=== PATIENT | female | born 1945 | race Caucasian/White ===

== ENCOUNTER 2018-07-30 14:14 | Outpatient (CLI) | payer MEDICARE, BC, SELFPAY ==
[2018-07-30 14:49] LABS: Abs Immature Grans 0.01 k/cumm (0.0-0.09); Absolute Basophil Count 0.02 k/cumm (0.0-0.2); Absolute Eosinophil Count 0.06 k/cumm (0.0-0.7); Absolute Lymphocyte Count 1.55 k/cumm (1.2-3.4); Absolute Monocyte Count 0.98 k/cumm (0.11-0.7); Absolute Neutrophil Count 7.67 k/cumm (1.2-6.7); Basophils % 0.2; Eosinophils % 0.6; HCT 40.7 % (36.0-46.0); Immature Grans % 0.1; Lymphocytes % 15.1; Mean Corp. HGB Concentration 34.4 g/dL (32.0-36.0); Mean Corpuscular Hemoglobin 30.7 pg (27.0-33.0); Mean Corpuscular Volume 89.3 fL (80-95); Mean Platelet Volume 9.5 fL (8.0-11.0); Monocytes % 9.5; Neutrophils % 74.5; Platelet Count 170 x1000/uL (130-400); RBC 4.56 m/cumm (4.00-5.20); White Blood Cell Count 10.29 k/cumm (4.4-10.8)
[2018-07-30 15:30] LABS: C-Reactive Protein 1.98 mg/dL (0.0-0.3); Lipase 165 U/L (73-393)
[2018-07-30 15:35] LABS: ALT 19 U/L (12-78); AST 18 U/L (15-37); Albumin 3.5 g/dL (3.4-5.0); Alkaline Phosphatase 126 U/L (46-116); Anion Gap 9.6 mmol/L (3-11); BUN 24 mg/dL (7-18); Bilirubin, Total 0.7 mg/dL (0.2-1.0); CO2 29.4 mmol/L (21.0-32.0); CREATININE 0.69 mg/dL (0.55-1.02); Calcium 9.2 mg/dL (8.5-10.1); Chloride 97 mmol/L (98-107); Glucose 103 mg/dL (70-100); Potassium 3.6 mmol/L (3.5-5.1); Sodium 136 mmol/L (136-145); Total Protein 6.9 g/dL (6.4-8.2)
== END 2018-07-30 14:34 ==
PROVIDERS: PCP Internal Medicine; Visit Provider Family Medicine
DX: R11.2 Nausea with vomiting, unspecified (principal)
CPT/HCPCS: 36415; 80053; 83690; 85025; 86140

== ENCOUNTER 2018-08-03 00:48 | Outpatient (CLI) | payer MEDICARE, BC, SELFPAY ==
--- NOTE | 2018-08-03 08:13 | DI.US_ITS ---
SYMPTOM/DIAGNOSIS: RUQ TENDERNESS, NAUSEA, VOMITING, R11.2 ABDOMINAL ULTRASOUND: 08/03 The hepatic parenchyma is unremarkable except for an incidental approximately 11 mm in diameter simple cyst of the right hepatic lobe. No hepatomegaly. There are multiple gallstones without evidence of gallbladder wall thickening or pericholecystic fluid collection. The common hepatic duct shows maximal diameter 2-3 mm. The pancreas appears intact as visualized Right kidney contains 12 mm simple cyst in the mid-pole region. The kidneys are otherwise unremarkable in appearance with no evidence of hydronephrosis or nephrolithiasis. Abdominal aorta shows marked wall calcifications. Proximal abdominal aorta is ectatic at about 30 mm greatest diameter.. No infrarenal abdominal aortic aneurysm seen. 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 Note is made of cholelithiasis.
== END 2018-08-03 01:08 ==
PROVIDERS: PCP Internal Medicine; Visit Provider Family Medicine
DX: R10.811 Right upper quadrant abdominal tenderness (principal); R11.2 Nausea with vomiting, unspecified; I70.0 Atherosclerosis of aorta; K80.20 Calculus of gallbladder without cholecystitis without obstruction
CPT/HCPCS: 76700

== ENCOUNTER 2018-12-04 12:10 | Emergency (ER) | payer MEDICARE, BC, SELFPAY ==
[2018-12-04 12:42] VITALS: BP 153/86; PULSE 105; RESP 20; TEMP 36.8; O2SAT 98
--- NOTE | 2018-12-04 12:53 | DI.CT_ITS ---
SYMPTOMS/DIAGNOSIS: FALL, LOSS OF CONSCIOUSNESS CRANIAL CT: Noncontrast cranial CT was performed. There is moderate generalized cerebral atrophy. There is an apparent old left lacunar infarct measuring about 15 x 9 mm in diameter. There is no evidence of acute intracranial hemorrhage, mass effect or midline shift. The paranasal sinuses are well aerated as are the mastoid air cells. The orbital and temporal bone structures appear intact. CONCLUSION: No evidence of acute intracranial process.
[2018-12-04] MEDS: Normal Saline 1,000 ML 1000 ML IV (12:57)
--- NOTE | 2018-12-04 12:58 | DI.CT_ITS ---
SYMPTOMS/DIAGNOSIS: ABDOMINAL PAIN, NAUSEA, VOMITING CHEST, ABDOMEN AND PELVIS CT: CT examination of the chest, abdomen and pelvis was performed with a bolus infusion of 100 cc's of Omnipaque 350. The lungs are predominantly clear but there is an irregular somewhat nodular appearing focus of increased radiodensity with suggestion of spiculation in the right upper lobe suspicious for carcinoma. No previous chest CT available for comparison. This measures roughly 5 x 14 mm in diameter. 7 mm well circumscribed nodule is also seen more medially in the right upper lobe. No additional focal lung lesions seen. There are areas of apparent honeycombing in the right lung base and diffuse emphysematous changes are present. No focal abnormality of the tracheobronchial tree seen. No gross mediastinal or hilar adenopathy. No pleural effusion seen. The liver and spleen are unremarkable in appearance. Note is made of cholelithiasis. No biliary dilatation seen. Incidental right hepatic lobe cyst noted. There is a small lower pole right renal cyst. Otherwise the kidneys and adrenals are unremarkable in appearance. The aorta is very heavily calcified and there is marked luminal diameter narrowing of the abdominal aorta and also of the left common iliac artery. Probable bypass graft noted in the right iliac region. No gross abdominal or pelvic adenopathy seen. No free fluid or free air. No evidence of bowel obstruction. The appendix not specifically visualized but there is no evidence of appendicitis or diverticulitis. CONCLUSION: Findings raising the possibility of right upper lobe lung carcinoma. No acute chest or abdomen process. Very heavy vascular calcification seen particularly involving abdominal aorta with marked luminal diameter narrowing. Major arterial branches of the aorta appear patent. No is also made of cholelithiasis.
[2018-12-04 13:05] LABS: Abs Immature Grans 0.04 k/cumm (0.0-0.09); Absolute Basophil Count 0.02 k/cumm (0.0-0.2); Absolute Eosinophil Count 0.02 k/cumm (0.0-0.7); Absolute Monocyte Count 1.04 k/cumm (0.11-0.7); Absolute Neutrophil Count 14.73 k/cumm (1.2-6.7); Basophils % 0.1; Eosinophils % 0.1; HCT 38.5 % (36.0-46.0); HGB 13.2 g/dL (12.0-15.5); Immature Grans % 0.2; Lymphocytes % 5.4; Mean Corp. HGB Concentration 34.3 g/dL (32.0-36.0); Mean Corpuscular Hemoglobin 30.2 pg (27.0-33.0); Mean Corpuscular Volume 88.1 fL (80-95); Mean Platelet Volume 10.3 fL (8.0-11.0); Monocytes % 6.2; Platelet Count 170 x1000/uL (130-400); RBC 4.37 m/cumm (4.00-5.20); RBC Distribution Width 13.2 % (11.7-14.6); White Blood Cell Count 16.74 k/cumm (4.4-10.8)
[2018-12-04 13:17] LABS: ALT 16 U/L (12-78); AST 22 U/L (15-37); Albumin 3.4 g/dL (3.4-5.0); Alkaline Phosphatase 130 U/L (46-116); BUN 39 mg/dL (7-18); Bilirubin, Total 0.6 mg/dL (0.2-1.0); CREATININE 1.01 mg/dL (0.55-1.02); Chloride 94 mmol/L (98-107); Estimated GFR 53.88 (mL/min/1.73m2); Glucose 111 mg/dL (70-100); Lipase 108 U/L (73-393); Potassium 3.2 mmol/L (3.5-5.1); Sodium 133 mmol/L (136-145); Total Protein 7.4 g/dL (6.4-8.2)
--- NOTE | 2018-12-04 14:21 | W.ED.GENAD ---
Discharge Plan Disposition Patient Disposition: HOME Condition: Stable Discharge Details Chief Complaint: Nausea/Vomit/Diar Clinical Impression: UTI (urinary tract infection), Mass of right lung, Calcification of aorta Primary Care Provider: Ivanna Rivas ED Provider: Chilango Garibay Home Meds and New Rx's Prescriptions: New cephalexin 500 mg tablet 500 mg PO BID 7 Days Qty: 14 RF: 0 Continued ranitidine HCl 300 mg tablet 300 mg PO BID Qty: 30 RF: 0 sertraline 100 mg tablet 100 mg PO DAILY Qty: 90 RF: 2 atorvastatin 20 mg tablet 20 mg PO DAILY Qty: 90 RF: 3 amlodipine 5 mg tablet 5 mg PO DAILY Qty: 90 RF: 3 irbesartan 300 mg tablet 300 mg PO DAILY Qty: 90 RF: 3 Discharge Instructions Instructions: Urinary Tract Infection in Women (ED) Additional Instructions: Please take your antibiotics as prescribed and follow-up with your primary care provider as previously arranged. Please mention to your primary care provider about the noted right lung mass, aortic calcifications. These may be chronic in nature but do need close monitoring. Return immediately for any further concerns that you may have and stay well-hydrated during illness. You may slowly advance your diet as tolerated Referrals: Ivanna Rivas MD [Primary Care Provider] - (Keep your appointment as scheduled for next Friday) Discharge Data Discharge Date/Time-TO BE ENTERED AT DEPARTURE: 12/04/18 17:24 Medical Decision Making Patient presenting the emergency department for chief complaint of nausea vomiting diarrhea and chills. She states this is been going on for approximately 2 weeks but has had significant weight loss over the last year. Patient is very thin and ill in appearance, nontoxic, slight tachycardia otherwise afebrile not hypotensive. Patient has diffuse abdominal tenderness with no focal findings. Given patient is very thin and frail in appearance there is significant concern for cancer given that she is a daily smoker. Patient is agreeable to labs and CT imaging of head, chest abdomen pelvis. Patient also does report multiple falls over the last couple weeks but denies any persistent neurological symptoms. She does say with falls there was some loss of consciousness. Review of labs shows a significant leukocytosis otherwise are nondiagnostic, CT of the head shows no acute findings. CT of the chest and pelvis shows a mass in the right upper lobe of the lung, significant calcifications of the aorta with previous stenting noted on the distal iliac, otherwise no other acute abdominal findings found. Review of urinalysis shows significant findings concerning for UTI. Patient given Rocephin in the emergency department for urinary tract infection along with 1 L normal saline. She already has Zofran prescribed to her. Patient was offered admission due to not tolerating much p.o. intake but she refused admission at this time. Patient is competent to refuse admission at this time and his spouse was present during our conversation. Patient placed up on Keflex twice daily times 7 days. Patient encouraged to return for any further needs otherwise follow-up with primary care as already scheduled for next Friday. After discussion of diagnosis and plan of care patient and significant other have no further needs, questions, or concerns and states clear understanding to return to the emergency department for any worsening symptoms. HPI General Mode of arrival: wheelchair. Date/Time Provider Initiated Documentation: 12/04/18 12:47. Limitations to Documentation: no limitations. Information obtained by: patient and RN notes reviewed. History of Present Illness 73 year old F presents to the emergency department with the chief complaint of weakness abd pain n/v/d, described as mild, with intensity rated at 1. Quality is described as aching, and is localized to the abdomen. Patient started experiencing this week(s) (1) and it has been constant. No relieving factors improve symptom(s), No exacerbating factors reported . Patient did receive the following treatments prior to arrival, none Related Data Home Medications Medication Instructions Recorded Confirmed amlodipine 5 mg tablet 5 mg PO DAILY #90 tab-cap 08/05/18 12/04/18 atorvastatin 20 mg tablet 20 mg PO DAILY #90 tab 08/05/18 12/04/18 irbesartan 300 mg tablet 300 mg PO DAILY #90 tab-cap 08/05/18 12/04/18 sertraline 100 mg tablet 100 mg PO DAILY #90 tab 08/05/18 12/04/18 ranitidine 300 mg tablet 300 mg PO BID #30 tab 12/02/18 12/04/18 cephalexin 500 mg PO BID 7 Days #14 tab 12/04/18 Previous Rx's Medication Instructions Recorded amlodipine 5 mg tablet 5 mg PO DAILY #90 tab-cap 08/05/18 atorvastatin 20 mg tablet 20 mg PO DAILY #90 tab 08/05/18 irbesartan 300 mg tablet 300 mg PO DAILY #90 tab-cap 08/05/18 sertraline 100 mg tablet 100 mg PO DAILY #90 tab 08/05/18 ranitidine 300 mg tablet 300 mg PO BID #30 tab 12/02/18 cephalexin 500 mg PO BID 7 Days #14 tab 12/04/18 Allergies Allergy/AdvReac Type Severity Reaction Status Date / Time erythromycin base AdvReac Severe violently Verified 12/04/18 12:50 ill with vomiting egg AdvReac Unknown unknown Verified 12/04/18 12:50 flu vaccine Allergy Intermediate localized Uncoded 12/04/18 12:50 reaction with arm swelling General Stated Complaint: Nausea/Vomit/Diar DIANE: 2 Review of Systems Constitutional Reports chills, Denies fever(s), Reports frequent falls, Reports poor appetite, Reports weakness and Reports weight loss Cardiovascular Denies chest pain, Reports syncope and Denies dyspnea Respiratory Denies cough and Denies dyspnea Gastrointestinal Reports as per HPI, Reports abdominal pain, Denies melena, Denies change in bowel habits, Denies constipation, Reports diarrhea, Reports nausea and Reports vomiting Genitourinary Denies hematuria, Denies urinary incontinence, Denies urinary hesitancy and Denies urinary urgency Integumentary/Breasts Denies rash Neurologic Reports syncope, Reports frequent falls and Reports weakness [facility] Social History housing: house lives independently: Yes current occupational status: retired current occupation: teacher Smoking/Tobacco Use Status: Current every day alcohol intake: never substance use type: does not use seatbelt use: always water heater temp set < 120 deg: Yes working smoke detector in home: Yes fire extinguisher in home: Yes carbon monox detector in home: Yes Exam Const General: cooperative Orientation: alert, awake and oriented x3 HENMT Head: no Au's sign, contusion right frontal, no palpable skull fracture and no raccoon eyes Ears: hearing grossly normal bilaterally and TM's normal bilaterally Resp Effort & Inspection: normal respiratory effort and able to speak in complete sentences Auscultation: clear to auscultation bilaterally and diminished lung sounds bilaterally in the lower lung rossi Cardio Rate: regular rate Rhythm: regular rhythm Heart Sounds: S1 normal and S2 normal GI Palpation: soft, no hepatosplenomegaly, not firm, no guarding, no masses, no pulsatile masses, not rigid, no splenomegaly and tender (Diffuse nonfocal) Auscultation: hypoactive bowel sounds Back/Spine/Pelvis Back: no CVA tenderness Neuro General: alert, awake, oriented x3, gait normal and moves all extremities Course Vital Signs Temperature 36.8 C 12/04/18 12:42 Pulse 105 H 12/04/18 12:42 Respiratory Rate 20 12/04/18 12:42 Blood Pressure 153/86 H 12/04/18 12:42 Pulse Oximetry 98 12/04/18 12:42 Temperature 36.8 C 12/04/18 12:42 Temperature Source Temporal Artery Scan 12/04/18 12:42 Pulse 105 H 12/04/18 12:42 Respiratory Rate 20 12/04/18 12:42 Respiratory Effort Non-Labored 12/04/18 12:45 Blood Pressure 153/86 H 12/04/18 12:42 Blood Pressure Position Supine 12/04/18 12:42 Pulse Oximetry 98 12/04/18 12:42 Oxygen Delivery Method Room Air 12/04/18 12:42 Oxygen Flow Rate 0 12/04/18 12:42 Lab/Test Results Lab/Test Results: Laboratory Tests Range/Units 12/04/18 12/04/18 12:45 12:45 WBC (4.4-10.8) k/cumm 16.74 H RBC (4.00-5.20) m/cumm 4.37 Hgb (12.0-15.5) g/dL 13.2 Hct (36.0-46.0) % 38.5 MCV (80-95) fL 88.1 MCH (27.0-33.0) pg 30.2 MCHC (32.0-36.0) g/dL 34.3 RDW (11.7-14.6) % 13.2 Plt Count (130-400) x1000/uL 170 MPV (8.0-11.0) fL 10.3 Immature Gran % 0.2 Neutrophils % 88.0 Lymphocytes % 5.4 Monocytes % 6.2 Eosinophils % 0.1 Basophils % 0.1 Absolute Neutrophils (1.2-6.7) k/cumm 14.73 H Absolute Lymphocytes (1.2-3.4) k/cumm 0.90 L Absolute Monocytes (0.11-0.7) k/cumm 1.04 H Absolute Eosinophils (0.0-0.7) k/cumm 0.02 Absolute Basophils (0.0-0.2) k/cumm 0.02 Sodium (136-145) mmol/L 133 L Potassium (3.5-5.1) mmol/L 3.2 L Chloride (98-107) mmol/L 94 L Carbon Dioxide (21.0-32.0) mmol/L 28.0 Anion Gap (3-11) mmol/L 11.0 BUN (7-18) mg/dL 39 H Creatinine (0.55-1.02) mg/dL 1.01 Estimated GFR/1.73 m2 (mL/min/1.73m2) 53.88 Glucose (70-100) mg/dL 111 H Calcium (8.5-10.1) mg/dL 9.0 Total Bilirubin (0.2-1.0) mg/dL 0.6 AST (15-37) U/L 22 ALT (12-78) U/L 16 Alkaline Phosphatase (46-116) U/L 130 H Total Protein (6.4-8.2) g/dL 7.4 Albumin (3.4-5.0) g/dL 3.4 Lipase (73-393) U/L 108
[2018-12-04 15:25] LABS: Lactate-non-spesis 0.8 mmol/l (0.6-1.4)
--- NOTE | 2018-12-04 15:28 | NUR.NOTE ---
patient ambulated weakly with 2 assist to restroom, patient drinking po fluids Nursing Note:
[2018-12-04 15:33] LABS: Bilirubin Negative (Negative); Blood Trace-intact (Negative); Clarity Sl Cloudy; Glucose Negative (Negative); Ketones 15 mg/dL (Negative); Leukocyte Esterase Small (Negative); Nitrite Positive (Negative); Urobilinogen 0.2 EU/dL (Up TO 0.2); pH 5.5 (5-8)
[2018-12-04 15:34] VITALS: BP 137/85; PULSE 71; RESP 16; O2SAT 97
[2018-12-04 15:55] LABS: Bacteria Moderate HPF (Negative); Crystals Negative HPF (Negative); Epithelial Cells Few HPF (Negative); RBC 0-2 (0-2); WBC 20-50 HPF (0-5)
[2018-12-04 15:56] LABS: C & S Indicated? Yes; Casts 0-2 Coarse Granular LPF (Negative); Mucus Trace (Negative)
[2018-12-04 16:48] VITALS: BP 157/84; PULSE 84; RESP 16; TEMP 37.1; O2SAT 95
--- NOTE | 2018-12-04 16:49 | NUR.NOTE ---
patient drinking water denies pain will contionue tommomitor Nursing Note:
--- NOTE | 2018-12-04 17:07 | NUR.NOTE ---
patient to be discharged Nursing Note:
== END 2018-12-04 17:24 | disposition home or self-care (01) ==
PROVIDERS: Emergency Provider Nurse Practitioner Family; PCP Internal Medicine
DX: N39.0 Urinary tract infection, site not specified (principal); R91.8 Other nonspecific abnormal finding of lung field; I70.0 Atherosclerosis of aorta
CPT/HCPCS: 74177; 80053; 83690; 87077; 96361; 96365; 99284; 70450; 71260; 81003; 81015; 83605; 85025; 87086; 87186; J0696

== ENCOUNTER 2018-12-15 12:28 | Outpatient (REF) | payer MEDICARE, BC, SELFPAY ==
[2018-12-17 04:58] LABS: Vitamin D 25 Total 18.2 ng/ml (30-100)
== END 2018-12-15 12:48 ==
LOC: LBN 12:28
PROVIDERS: PCP Internal Medicine; Visit Provider Internal Medicine
DX: M81.0 Age-related osteoporosis without current pathological fracture (principal)
CPT/HCPCS: 82306

== ENCOUNTER 2018-12-24 09:00 | Outpatient (RCR) | payer MEDICARE, BC, SELFPAY ==
[2018-12-24] MEDS: Lactated Ringers 1,000 ML 333.333 ML IV (10:15)
[2018-12-24 11:02] LABS: CREATININE 0.57 mg/dL (0.55-1.02)
[2018-12-24] MEDS: Normal Saline Flush 10 ML SYR IVP (11:12)
== END 2018-12-31 23:59 | disposition home or self-care (01) ==
LOC: INF 09:00
PROVIDERS: PCP Internal Medicine; Visit Provider Internal Medicine
DX: K55.1 Chronic vascular disorders of intestine (principal); E86.0 Dehydration
CPT/HCPCS: 36415; 96360; 96361; 74174; 82565; J3490

== ENCOUNTER 2018-12-24 14:10 | Outpatient (CLI) | payer MEDICARE, BC, SELFPAY ==
[2018-12-24] MEDS: Omnipaque 350 MG/ML 100 ML BTL IJ (14:08)
--- NOTE | 2018-12-24 14:08 | DI.CT_ITS ---
SYMPTOM/DIAGNOSIS: ABNL WT LOSS, EPIGASTRIC PAIN, ? MESENTERIC ISCHEMIA, R63.4, I71.4 CTA ABDOMEN AND PELVIS: CT angiography was performed with multi slice acquisition and multi planar and 3D reconstruction. CT angiography of the abdomen and pelvis was performed with a bolus infusion of 100 cc's of Omnipaque 350. There is severe calcific atheromatous disease of the aorta and major vessels of the abdomen. 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 The left internal and external arteries reconstitute via collaterals. The celiac trunk appears occluded but reconstitutes via collaterals. The SMA is occluded but reconstitutes via collaterals. The MOISÉS is occluded but branch vessels appear to reconstitute via collaterals. Right renal artery is mildly narrowed at its origin. 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 Note is again made of grossly unremarkable appearance of liver, spleen and pancreas as noted on examination of 12/04/18. There is no hydronephrosis and the renal cortex enhances fairly homogeneously and symmetrically bilaterally. Adrenals grossly unremarkable. No gross abdominal adenopathy or bowel obstruction. CONCLUSION: Severe atheromatous disease. Please see above discussion for findings of major arterial branches of the abdominal aorta which is occluded at the L 3 level.
[2018-12-24] MEDS: Normal Saline Flush 10 ML SYR IVP (14:09)
== END 2018-12-24 14:30 ==
PROVIDERS: PCP Internal Medicine; Visit Provider Student in an Organized Health Care Education/Training Program
DX: I70.0 Atherosclerosis of aorta (principal); R10.13 Epigastric pain; R63.4 Abnormal weight loss
CPT/HCPCS: 74174; J3490

== ENCOUNTER 2019-01-15 20:18 | Outpatient (REF) | payer MEDICARE, BC, SELFPAY ==
[2019-01-15 21:14] LABS: Abs Immature Grans 0.01 k/cumm (0.0-0.09); Absolute Basophil Count 0.02 k/cumm (0.0-0.2); Absolute Eosinophil Count 0.03 k/cumm (0.0-0.7); Absolute Lymphocyte Count 1.62 k/cumm (1.2-3.4); Absolute Monocyte Count 0.86 k/cumm (0.11-0.7); Absolute Neutrophil Count 5.94 k/cumm (1.2-6.7); Basophils % 0.2; Eosinophils % 0.4; HCT 33.8 % (36.0-46.0); HGB 11.4 g/dL (12.0-15.5); Immature Grans % 0.1; Lymphocytes % 19.1; Mean Corp. HGB Concentration 33.7 g/dL (32.0-36.0); Mean Corpuscular Hemoglobin 29.5 pg (27.0-33.0); Mean Corpuscular Volume 87.3 fL (80-95); Mean Platelet Volume 10.6 fL (8.0-11.0); Monocytes % 10.1; Neutrophils % 70.1; Platelet Count 202 x1000/uL (130-400); RBC 3.87 m/cumm (4.00-5.20); RBC Distribution Width 13.9 % (11.7-14.6); White Blood Cell Count 8.48 k/cumm (4.4-10.8)
[2019-01-15 21:41] LABS: ALT 16 U/L (12-78); AST 17 U/L (15-37); Albumin 3.1 g/dL (3.4-5.0); Alkaline Phosphatase 119 U/L (46-116); Anion Gap 7.1 mmol/L (3-11); BUN 40 mg/dL (7-18); Bilirubin, Total 0.5 mg/dL (0.2-1.0); CO2 25.9 mmol/L (21.0-32.0); CREATININE 0.57 mg/dL (0.55-1.02); Calcium 8.7 mg/dL (8.5-10.1); Chloride 101 mmol/L (98-107); Glucose 99 mg/dL (70-100); Magnesium 2.1 mg/dL (1.8-2.4); Potassium 4.8 mmol/L (3.5-5.1); Sodium 134 mmol/L (136-145); Total Protein 6.6 g/dL (6.4-8.2); Triglyceride 41 mg/dL (30-150)
[2019-01-18 09:51] LABS: Prealbumin 15 mg/dL (20-40)
== END 2019-01-15 20:38 ==
LOC: NCHCN 20:18
PROVIDERS: PCP Internal Medicine; Visit Provider Surgery Vascular Surgery
DX: E78.00 Pure hypercholesterolemia, unspecified (principal); I10 Essential (primary) hypertension; R64 Cachexia; K55.9 Vascular disorder of intestine, unspecified
CPT/HCPCS: 80053; 83735; 84100; 84134; 84478; 85025

== ENCOUNTER 2019-04-12 22:28 | Outpatient (REF) | payer MEDICARE, BC, SELFPAY ==
[2019-04-12 21:52] LABS: HCT 25.3 % (36.0-46.0)
== END 2019-04-12 22:48 ==
LOC: LBN 22:28
PROVIDERS: PCP Internal Medicine; Visit Provider Internal Medicine
DX: K55.059 Acute (reversible) ischemia of intestine, part and extent unspecified (principal); R64 Cachexia
CPT/HCPCS: 85014; 85018

== ENCOUNTER 2019-04-19 21:47 | Outpatient (REF) | payer MEDICARE, BC, SELFPAY ==
[2019-04-19 22:52] LABS: HGB 5.6 g/dL (12.0-15.5)
== END 2019-04-19 22:07 ==
LOC: LBN 21:47
PROVIDERS: PCP Internal Medicine; Visit Provider Internal Medicine
DX: E43 Unspecified severe protein-calorie malnutrition (principal); K55.1 Chronic vascular disorders of intestine
CPT/HCPCS: 85014; 85018

== ENCOUNTER 2019-04-19 23:32 | Emergency (ER) | payer MEDICARE, BC, SELFPAY ==
[2019-04-19 23:51] VITALS: BP 161/65; PULSE 86; RESP 20; TEMP 36.8; O2SAT 100
[2019-04-20] VITALS (14 sets, daily range): BP systolic 121–159; BP diastolic 61–95; PULSE 77–84; RESP 18–20; TEMP 36.7–36.9; O2SAT 96–99
--- NOTE | 2019-04-20 00:06 | W.ED.GENAD ---
Discharge Plan Disposition Patient Disposition: [facility] Condition: Stable Discharge Details Chief Complaint: GenMedical Clinical Impression: Acute GI bleeding Primary Care Provider: Ivanna Rivas ED Provider: Rick Khanna Home Meds and New Rx's Prescriptions: No Action ondansetron HCl [Zofran] 4 mg tablet 4 mg PO BID-TID PRNRF: 0 atorvastatin 20 mg tablet 20 mg PO DAILY Qty: 90 RF: 3 amlodipine 5 mg tablet 5 mg PO DAILY Qty: 90 RF: 3 irbesartan 300 mg tablet 300 mg PO DAILY Qty: 90 RF: 3 aspirin 81 mg tablet,chewable 81 mg PO DAILY RF: 0 lidocaine [Lidoderm] 5 % adhesive patch,medicated 1 patch TP DAILY PRNRF: 0 acetaminophen 325 mg tablet 650 mg PO Q6H PRNRF: 0 sertraline 100 mg tablet 100 mg PO DAILY Qty: 90 RF: 3 warfarin [Coumadin] 2.5 mg tablet 2.5 mg PO DAILY RF: 0 clopidogrel 75 mg tablet 75 mg PO DAILY RF: 0 Medical Decision Making 74-year-old female with a history of 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 She had recurrent symptoms and was admitted to the hospital for unclogging (proximal anastomosis was thrombosed ) and discharged home approximately 1 week ago. She was discharged on warfarin. She was started on iron and since that time is had black stools. She reports that her INR was reported at 2.4 earlier today and she was asked to increase her Coumadin to 5 mg which she took today. She subsequent received a phone call that her hemoglobin was 5.6 and she should present to the nearest hospital. Patient arrives with blood pressure 161/65, pulse 86, she is afebrile and well pale and thin, is otherwise well-appearing. She does have an abdominal bruit. Patient declined physician rectal exam, with a nurse exam the patient provided a dark stool sample which was grossly guaiac positive. IV placed, labs obtained. Patient has a rare blood type and requires specific crossmatch. Do not feel she requires unmatched transfusion and its inherent risk of hemolytic reaction at this time. Patient consented for transufsion, await blood availability. Case discussed with Dr. Hackett, Vascular, and Dr Francis, Hospitalist medicine and patient to be admitted to hospitalist medicine at [facility]. Lab Data Lab results reviewed: Yes I reviewed the patient's lab results. Laboratory Results - last 24 hr 04/20/19 04/20/19 04/20/19 00:30 00:30 00:30 WBC 7.57 RBC 1.77 L Hgb 5.2 L* Hct 16.6 L* MCV 93.8 MCH 29.4 MCHC 31.3 L RDW 17.0 H Plt Count 254 MPV 8.5 Sodium 134 L Potassium 3.3 L Chloride 98 Carbon Dioxide 28.2 Anion Gap 7.8 BUN 33 H Creatinine 0.79 Estimated GFR/1.73 m2 >= 60.00 Glucose 92 Calcium 7.9 L Magnesium 1.7 L Total Bilirubin 0.3 AST 21 ALT 28 Alkaline Phosphatase 81 Total Protein 6.0 L Albumin 3.1 L Crossmatch See Detail HPI General Mode of arrival: ambulatory. Date/Time Provider Initiated Documentation: 04/19/19 23:32. Limitations to Documentation: no limitations. Information obtained by: patient and family. History of Present Illness 74 year old F presents to the emergency department with the chief complaint of Called for hemoglobin of 5.6, denies abdominal pain or bloody stool. Weak, described as moderate, Quality is described as constant, Patient reports no radiation. Patient started experiencing this day(s) and it has been constant. No relieving factors improve symptom(s), No exacerbating factors reported . Patient notes no other symptoms.. Patient did receive the following treatments prior to arrival, none Related Data Home Medications Medication Instructions Recorded Confirmed amlodipine 5 mg tablet 5 mg PO DAILY #90 tab-cap 08/05/18 04/20/19 atorvastatin 20 mg tablet 20 mg PO DAILY #90 tab 08/05/18 04/20/19 irbesartan 300 mg tablet 300 mg PO DAILY #90 tab-cap 08/05/18 04/20/19 ondansetron HCl 4 mg tablet 4 mg PO BID-TID PRN 12/08/18 04/20/19 aspirin 81 mg chewable tablet 81 mg PO DAILY 12/30/18 04/20/19 acetaminophen 325 mg tablet 650 mg PO Q6H PRN tab 02/01/19 04/20/19 lidocaine 5 % topical patch 1 patch TP DAILY PRN 02/01/19 04/20/19 sertraline 100 mg tablet 100 mg PO DAILY #90 tab 02/23/19 04/20/19 clopidogrel 75 mg tablet 75 mg PO DAILY 04/08/19 04/20/19 warfarin 2.5 mg tablet 2.5 mg PO DAILY 04/08/19 04/20/19 Previous Rx's Medication Instructions Recorded amlodipine 5 mg tablet 5 mg PO DAILY #90 tab-cap 08/05/18 atorvastatin 20 mg tablet 20 mg PO DAILY #90 tab 08/05/18 irbesartan 300 mg tablet 300 mg PO DAILY #90 tab-cap 08/05/18 sertraline 100 mg tablet 100 mg PO DAILY #90 tab 02/23/19 Allergies Allergy/AdvReac Type Severity Reaction Status Date / Time erythromycin base AdvReac Severe violently Verified 04/20/19 01:03 ill with vomiting egg AdvReac Unknown unknown Verified 04/20/19 01:03 flu vaccine Allergy Intermediate localized Uncoded 04/20/19 01:03 reaction with arm swelling General Stated Complaint: GenMedical DIANE: 2 Review of Systems Review of Systems Generalized weakness. Vomited x1 yesterday. Black stools since starting iron supplement, denies bloody stool, refuses rectal exam. 8 systems reviewed and otherwise - [facility] Social History Smoking/Tobacco Use Status: Former Tobacco Use Alcohol Intake: never Drug use: Never Substance use type: does not use Household members: spouse Housing: house Education Level: college current occupation: teacher What is your relationship status?: Panel score (0-1 are the most socially isolated patients): 1 What type of physical activity do you participate in: none Seatbelt use: always Drive intox or ride w/intox emergency detail driver: No Water heater temp set <120 deg: Yes Working smoke detector in home: Yes Fire extinguisher in home: Yes Carbon monox detector in home: Yes Exam Narrative Exam Narrative: GEN: awake, alert, oriented 3. Pleasant, well groomed, interactive. Cachectic and pale HEAD: Normocephalic, atraumatic ENT: Mucous membranes moist, oropharynx unremarkable, External ear exam unremarkable EYES: PERRL, EOMI NECK: Full ROM, no AMINA, no menigismus CHEST/RESP: Nontender, clear to auscultation bilateral, subtle wheeze at left base. Left mid axillary line with healed incision. CARDIOVASCULAR: RRR, no murmur, rub tomasa. 2+ Rad pulse bilateral ABDOMEN: Soft, nontender, no mass. +Bowel sounds. Positive bruit. Patient declines rectal exam EXT: Full ROM, no edema, no rash. Cannot adequately palpate femoral pulses Neuro: Grossly normal neurologic exam, conversant, interactive. Psych: Speech fluent, thoughts congruent, affect normal Course Vital Signs Temperature 36.8 C 04/19/19 23:51 Pulse 86 04/19/19 23:51 Respiratory Rate 20 04/19/19 23:51 Blood Pressure 161/65 H 04/19/19 23:51 Pulse Oximetry 100 04/19/19 23:51 Temperature 36.8 C 04/19/19 23:51 Temperature Source Skin 04/19/19 23:51 Pulse 86 04/19/19 23:51 Respiratory Rate 20 04/19/19 23:51 Blood Pressure 161/65 H 04/19/19 23:51 Blood Pressure Position Sitting 04/19/19 23:51 Pulse Oximetry 100 04/19/19 23:51 Oxygen Delivery Method Room Air 04/19/19 23:51 Oxygen Flow Rate 0 04/19/19 23:51
--- NOTE | 2019-04-20 00:11 | ED.GENADUL_ITS ---
Discharge Plan Disposition Patient Disposition: [facility] Condition: Stable Discharge Details Chief Complaint: GenMedical Clinical Impression: Acute GI bleeding Primary Care Provider: Ivanna Rivas ED Provider: Rick Khanna Home Meds and New Rx's Prescriptions: No Action ondansetron HCl [Zofran] 4 mg tablet 4 mg PO BID-TID PRNRF: 0 atorvastatin 20 mg tablet 20 mg PO DAILY Qty: 90 RF: 3 amlodipine 5 mg tablet 5 mg PO DAILY Qty: 90 RF: 3 irbesartan 300 mg tablet 300 mg PO DAILY Qty: 90 RF: 3 aspirin 81 mg tablet,chewable 81 mg PO DAILY RF: 0 lidocaine [Lidoderm] 5 % adhesive patch,medicated 1 patch TP DAILY PRNRF: 0 acetaminophen 325 mg tablet 650 mg PO Q6H PRNRF: 0 sertraline 100 mg tablet 100 mg PO DAILY Qty: 90 RF: 3 warfarin [Coumadin] 2.5 mg tablet 2.5 mg PO DAILY RF: 0 clopidogrel 75 mg tablet 75 mg PO DAILY RF: 0 Medical Decision Making 74-year-old female with a history of 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 She had recurrent symptoms and was admitted to the hospital for unclogging (proximal anastomosis was thrombosed ) and discharged home approximately 1 week ago. She was discharged on warfarin. She was started on iron and since that time is had black stools. She reports that her INR was reported at 2.4 earlier today and she was asked to increase her Coumadin to 5 mg which she took today. She subsequent received a phone call that her hemoglobin was 5.6 and she should present to the nearest hospital. Patient arrives with blood pressure 161/65, pulse 86, she is afebrile and well pale and thin, is otherwise well-appearing. She does have an abdominal bruit. Patient declined physician rectal exam, with a nurse exam the patient provided a dark stool sample which was grossly guaiac positive. IV placed, labs obtained. Patient has a rare blood type and requires specific crossmatch. Do not feel she requires unmatched transfusion and its inherent risk of hemolytic reaction at this time. Patient consented for transufsion, await blood availability. Case discussed with Dr. Hackett, Vascular, and Dr Francis, Hospitalist medicine and patient to be admitted to hospitalist medicine at [facility]. Lab Data Lab results reviewed: Yes I reviewed the patient's lab results. Laboratory Results - last 24 hr 04/20/19 04/20/19 04/20/19 00:30 00:30 00:30 WBC 7.57 RBC 1.77 L Hgb 5.2 L* Hct 16.6 L* MCV 93.8 MCH 29.4 MCHC 31.3 L RDW 17.0 H Plt Count 254 MPV 8.5 Sodium 134 L Potassium 3.3 L Chloride 98 Carbon Dioxide 28.2 Anion Gap 7.8 BUN 33 H Creatinine 0.79 Estimated GFR/1.73 m2 >= 60.00 Glucose 92 Calcium 7.9 L Magnesium 1.7 L Total Bilirubin 0.3 AST 21 ALT 28 Alkaline Phosphatase 81 Total Protein 6.0 L Albumin 3.1 L Crossmatch See Detail HPI General Mode of arrival: ambulatory . Date/Time Provider Initiated Documentation: 04/19/19 23:32 . Limitations to Documentation: no limitations . Information obtained by: patient and family . History of Present Illness 74 year old F presents to the emergency department with the chief complaint of Called for hemoglobin of 5.6, denies abdominal pain or bloody stool. Weak, described as moderate, Quality is described as constant, Patient reports no radiation. Patient started experiencing this day(s) and it has been constant. No relieving factors improve symptom(s), No exacerbating factors reported . Patient notes no other symptoms.. Patient did receive the following treatments prior to arrival, none Related Data Home Medications Medication Instructions Recorded Confirmed amlodipine 5 mg tablet 5 mg PO DAILY #90 tab-cap 08/05/18 04/20/19 atorvastatin 20 mg tablet 20 mg PO DAILY #90 tab 08/05/18 04/20/19 irbesartan 300 mg tablet 300 mg PO DAILY #90 tab-cap 08/05/18 04/20/19 ondansetron HCl 4 mg tablet 4 mg PO BID-TID PRN 12/08/18 04/20/19 aspirin 81 mg chewable tablet 81 mg PO DAILY 12/30/18 04/20/19 acetaminophen 325 mg tablet 650 mg PO Q6H PRN tab 02/01/19 04/20/19 lidocaine 5 % topical patch 1 patch TP DAILY PRN 02/01/19 04/20/19 sertraline 100 mg tablet 100 mg PO DAILY #90 tab 02/23/19 04/20/19 clopidogrel 75 mg tablet 75 mg PO DAILY 04/08/19 04/20/19 warfarin 2.5 mg tablet 2.5 mg PO DAILY 04/08/19 04/20/19 Previous Rx's Medication Instructions Recorded amlodipine 5 mg tablet 5 mg PO DAILY #90 tab-cap 08/05/18 atorvastatin 20 mg tablet 20 mg PO DAILY #90 tab 08/05/18 irbesartan 300 mg tablet 300 mg PO DAILY #90 tab-cap 08/05/18 sertraline 100 mg tablet 100 mg PO DAILY #90 tab 02/23/19 Allergies Allergy/AdvReac Type Severity Reaction Status Date / Time erythromycin base AdvReac Severe violently Verified 04/20/19 01:03 ill with vomiting egg AdvReac Unknown unknown Verified 04/20/19 01:03 flu vaccine Allergy Intermediate localized Uncoded 04/20/19 01:03 reaction with arm swelling General Stated Complaint: GenMedical DIANE: 2 Review of Systems Review of Systems Generalized weakness. Vomited x1 yesterday. Black stools since starting iron supplement, denies bloody stool, refuses rectal exam. 8 systems reviewed and otherwise - [facility], [facility] Social History Smoking/Tobacco Use Status: Former Tobacco Use Alcohol Intake: never Drug use: Never Substance use type: does not use Household members: spouse Housing: house Education Level: college current occupation: teacher What is your relationship status?: Panel score (0-1 are the most socially isolated patients): 1 What type of physical activity do you participate in: none Seatbelt use: always Drive intox or ride w/intox local company refrigerated truck driver: No Water heater temp set <120 deg: Yes Working smoke detector in home: Yes Fire extinguisher in home: Yes Carbon monox detector in home: Yes Exam Narrative Exam Narrative: GEN: awake, alert, oriented 3. Pleasant, well groomed, interactive. Cachectic and pale HEAD: Normocephalic, atraumatic ENT: Mucous membranes moist, oropharynx unremarkable, External ear exam unremarkable EYES: PERRL, EOMI NECK: Full ROM, no AMINA, no menigismus CHEST/RESP: Nontender, clear to auscultation bilateral, subtle wheeze at left base. Left mid axillary line with healed incision. CARDIOVASCULAR: RRR, no murmur, rub tomasa. 2+ Rad pulse bilateral ABDOMEN: Soft, nontender, no mass. +Bowel sounds. Positive bruit. Patient declines rectal exam EXT: Full ROM, no edema, no rash. Cannot adequately palpate femoral pulses Neuro: Grossly normal neurologic exam, conversant, interactive. Psych: Speech fluent, thoughts congruent, affect normal Course Vital Signs Temperature 36.8 C 04/19/19 23:51 Pulse 86 04/19/19 23:51 Respiratory Rate 20 04/19/19 23:51 Blood Pressure 161/65 H 04/19/19 23:51 Pulse Oximetry 100 04/19/19 23:51 Temperature 36.8 C 04/19/19 23:51 Temperature Source Skin 04/19/19 23:51 Pulse 86 04/19/19 23:51 Respiratory Rate 20 04/19/19 23:51 Blood Pressure 161/65 H 04/19/19 23:51 Blood Pressure Position Sitting 04/19/19 23:51 Pulse Oximetry 100 04/19/19 23:51 Oxygen Delivery Method Room Air 04/19/19 23:51 Oxygen Flow Rate 0 04/19/19 23:51
[2019-04-20 00:43] LABS: Abs Immature Grans 0.01 k/cumm (0.0-0.09); Absolute Basophil Count 0.03 k/cumm (0.0-0.2); Absolute Eosinophil Count 0.16 k/cumm (0.0-0.7); Absolute Lymphocyte Count 1.63 k/cumm (1.2-3.4); Absolute Monocyte Count 0.75 k/cumm (0.11-0.7); Absolute Neutrophil Count 4.99 k/cumm (1.2-6.7); Basophils % 0.4; Eosinophils % 2.1; Immature Grans % 0.1; Lymphocytes % 21.5; Mean Corp. HGB Concentration 31.3 g/dL (32.0-36.0); Mean Corpuscular Hemoglobin 29.4 pg (27.0-33.0); Mean Corpuscular Volume 93.8 fL (80-95); Mean Platelet Volume 8.5 fL (8.0-11.0); Monocytes % 9.9; Platelet Count 254 x1000/uL (130-400); RBC 1.77 m/cumm (4.00-5.20); White Blood Cell Count 7.57 k/cumm (4.4-10.8)
[2019-04-20 00:45] LABS: HCT 16.6 % (36.0-46.0); HGB 5.2 g/dL (12.0-15.5)
[2019-04-20 00:59] LABS: ALT 28 U/L (12-78); AST 21 U/L (15-37); Albumin 3.1 g/dL (3.4-5.0); Alkaline Phosphatase 81 U/L (46-116); Anion Gap 7.8 mmol/L (3-11); BUN 33 mg/dL (7-18); Bilirubin, Total 0.3 mg/dL (0.2-1.0); CO2 28.2 mmol/L (21.0-32.0); CREATININE 0.79 mg/dL (0.55-1.02); Calcium 7.9 mg/dL (8.5-10.1); Chloride 98 mmol/L (98-107); Glucose 92 mg/dL (70-100); Magnesium 1.7 mg/dL (1.8-2.4); Potassium 3.3 mmol/L (3.5-5.1); Sodium 134 mmol/L (136-145)
[2019-04-20] MEDS: Normal Saline 1,000 ML 40 ML IV (01:00)
[2019-04-20 01:15] LABS: INR 2.6 (0.9-1.1); PTT Activated 26.7 sec (21.0-31.4); Prothrombin Time 26.3 sec (9.3-11.0)
[2019-04-20 01:29] LABS: Anisocytosis 2+; Diff Comment RBC Morph Reviewed; Hypochromasia 2+; Macrocytosis 1+; Microcytosis 1+; Poikilocytes 2+; Polychromasia Present
== END 2019-04-20 02:30 | disposition short-term general hospital (02) ==
PROVIDERS: Emergency Provider Emergency Medicine; PCP Internal Medicine
DX: K92.2 Gastrointestinal hemorrhage, unspecified (principal); I10 Essential (primary) hypertension; F17.210 Nicotine dependence, cigarettes, uncomplicated; Z79.01 Long term (current) use of anticoagulants
CPT/HCPCS: 36415; 80053; 86850; 86900; 86901; 86920; 96360; 99285; 83735; 85025; 85610; 85730; 99284

== ENCOUNTER 2019-04-24 16:42 | Outpatient (REF) | payer MEDICARE, BC, SELFPAY ==
[2019-04-24 15:56] LABS: HCT 27.3 % (36.0-46.0); HGB 8.9 g/dL (12.0-15.5)
== END 2019-04-24 17:02 ==
LOC: LBN 16:42
PROVIDERS: PCP Internal Medicine; Visit Provider Internal Medicine
DX: D50.0 Iron deficiency anemia secondary to blood loss (chronic) (principal)
CPT/HCPCS: 85014; 85018

== ENCOUNTER 2019-04-26 20:54 | Outpatient (REF) | payer MEDICARE, BC, SELFPAY | END 2019-04-26 21:14 | LOC: LBN 20:54 | PROVIDERS: PCP Internal Medicine; Visit Provider Internal Medicine | DX: K92.2 Gastrointestinal hemorrhage, unspecified (principal) | CPT/HCPCS: 85014; 85018 ==

== ENCOUNTER 2019-05-03 21:25 | Outpatient (REF) | payer MEDICARE, BC, SELFPAY ==
[2019-05-03 22:00] LABS: HCT 27.2 % (36.0-46.0); HGB 8.7 g/dL (12.0-15.5)
== END 2019-05-03 21:45 ==
LOC: LBN 21:25
PROVIDERS: PCP Internal Medicine; Visit Provider Surgery Vascular Surgery
DX: K92.2 Gastrointestinal hemorrhage, unspecified (principal)
CPT/HCPCS: 85014; 85018

== ENCOUNTER 2019-05-07 02:17 | Outpatient (RCR) | payer MEDICARE, BC, SELFPAY ==
[2019-05-07] MEDS: Normal Saline Flush 10 ML SYR IVP (13:40)
== END 2019-06-02 23:59 | disposition home or self-care (01) ==
LOC: INF 02:17
PROVIDERS: PCP Internal Medicine; Visit Provider Internal Medicine
DX: D61.1 Drug-induced aplastic anemia (principal)
CPT/HCPCS: 96365; J1756

== ENCOUNTER 2019-05-10 13:29 | Outpatient (REF) | payer MEDICARE, BC, SELFPAY ==
[2019-05-10 14:11] LABS: HCT 27.3 % (36.0-46.0); HGB 8.5 g/dL (12.0-15.5)
== END 2019-05-10 13:49 ==
LOC: LBN 13:29
PROVIDERS: PCP Internal Medicine; Visit Provider Internal Medicine
DX: K92.2 Gastrointestinal hemorrhage, unspecified (principal); E43 Unspecified severe protein-calorie malnutrition; R64 Cachexia; I74.9 Embolism and thrombosis of unspecified artery; D50.0 Iron deficiency anemia secondary to blood loss (chronic); Z48.812 Encounter for surgical aftercare following surgery on the circulatory system
CPT/HCPCS: 85014; 85018

== ENCOUNTER 2019-05-17 21:37 | Outpatient (REF) | payer MEDICARE, BC, SELFPAY ==
[2019-05-17 21:43] LABS: HCT 34.6 % (36.0-46.0)
== END 2019-05-17 21:57 ==
LOC: LBN 21:37
PROVIDERS: PCP Internal Medicine; Visit Provider Internal Medicine
DX: K92.2 Gastrointestinal hemorrhage, unspecified (principal); R64 Cachexia
CPT/HCPCS: 85014; 85018

== ENCOUNTER → 2019-05-18 13:00 | Outpatient (BNVA) | payer MEDICARE, BC, SELFPAY | PROVIDERS: PCP Internal Medicine; Visit Provider Surgery | DX: K92.2 Gastrointestinal hemorrhage, unspecified (principal); I10 Essential (primary) hypertension; Z95.828 Presence of other vascular implants and grafts | CPT/HCPCS: 99203; 99214 ==

== ENCOUNTER 2019-05-24 16:15 | Outpatient (REF) | payer MEDICARE, BC, SELFPAY ==
[2019-05-24 12:06] LABS: HCT 35.2 % (36.0-46.0); HGB 11.1 g/dL (12.0-15.5)
== END 2019-05-24 16:35 ==
LOC: LBN 16:15
PROVIDERS: PCP Internal Medicine; Visit Provider Internal Medicine
DX: K92.2 Gastrointestinal hemorrhage, unspecified (principal)
CPT/HCPCS: 85014; 85018

== ENCOUNTER 2019-05-31 22:20 | Outpatient (REF) | payer MEDICARE, BC, SELFPAY ==
[2019-05-31 21:57] LABS: HCT 34.6 % (36.0-46.0); HGB 10.8 g/dL (12.0-15.5)
== END 2019-05-31 22:40 ==
LOC: LBN 22:20
PROVIDERS: PCP Internal Medicine; Visit Provider Internal Medicine
DX: K92.9 Disease of digestive system, unspecified (principal); D50.0 Iron deficiency anemia secondary to blood loss (chronic); R64 Cachexia
CPT/HCPCS: 85014; 85018

== ENCOUNTER 2019-06-07 13:50 | Outpatient (REF) | payer MEDICARE, BC, SELFPAY ==
[2019-06-07 14:38] LABS: HCT 34.5 % (36.0-46.0); HGB 11.1 g/dL (12.0-15.5)
== END 2019-06-07 14:10 ==
LOC: LBN 13:50
PROVIDERS: PCP Internal Medicine; Visit Provider Internal Medicine
DX: K55.1 Chronic vascular disorders of intestine (principal); K92.2 Gastrointestinal hemorrhage, unspecified
CPT/HCPCS: 85014; 85018

== ENCOUNTER 2019-06-14 23:04 | Outpatient (REF) | payer MEDICARE, BC, SELFPAY ==
[2019-06-14 22:37] LABS: HCT 34.3 % (36.0-46.0); HGB 11.1 g/dL (12.0-15.5)
== END 2019-06-14 23:24 ==
LOC: NCHCN 23:04
PROVIDERS: PCP Internal Medicine; Visit Provider Internal Medicine
DX: K92.2 Gastrointestinal hemorrhage, unspecified (principal); D50.0 Iron deficiency anemia secondary to blood loss (chronic)
CPT/HCPCS: 85014; 85018

== ENCOUNTER 2019-06-23 21:12 | Outpatient (REF) | payer MEDICARE, BC, SELFPAY ==
[2019-06-23 21:39] LABS: HCT 35.4 % (36.0-46.0); HGB 11.3 g/dL (12.0-15.5)
== END 2019-06-23 21:32 ==
LOC: LBN 21:12
PROVIDERS: PCP Internal Medicine; Visit Provider Internal Medicine
DX: E43 Unspecified severe protein-calorie malnutrition (principal); K92.2 Gastrointestinal hemorrhage, unspecified
CPT/HCPCS: 85014; 85018